=== PATIENT | female | born 1990 | race Caucasian/White ===

== ENCOUNTER → 2021-01-11 | Outpatient (CLI) | payer BC ==
[~2021-01-11] VITALS: Ht 165.1 cm; Wt 122.5 kg
[2021-01-11 11:27] LABS: HEMOGLOBIN 12.8 gm/dl (12.3-15.3); RED BLOOD COUNT 4.52 M/UL (4.00-5.10); WHITE BLOOD COUNT 6.6 K/UL (4.5-11.0)
== END ==
LOC: OPSV 10:39
PROVIDERS: Psychiatry & Neurology Neurology
DX: G35 Multiple sclerosis (principal)
CPT/HCPCS: 36415; 80076; 85025; 96375; 96413; 96415; J2350; J2930; J7030

== ENCOUNTER → 2021-03-24 | Outpatient (CLI) | payer BC | LOC: EMI 15:44 | DX: G35 Multiple sclerosis (principal) | CPT/HCPCS: 70551 ==

== ENCOUNTER → 2021-07-08 | Outpatient (CLI) | payer BC ==
[~2021-07-08] VITALS: Ht 165.1 cm; Wt 122.5 kg
== END ==
LOC: OPSV 08:07
DX: G35 Multiple sclerosis (principal); Z53.29 Procedure and treatment not carried out because of patient's decision for other reasons
CPT/HCPCS: 96375; 96413; 96415; J2350; J2930; J7030